=== PATIENT | female | born 1990 | race Caucasian/White ===

== ENCOUNTER 2019-08-04 08:55 | Inpatient (IN) | payer OTHER ==
[2019-08-04] MEDS ORDERED: Lidocaine 1% 50 ML MDV INJECT PRN (09:56)
[2019-08-04] MEDS ORDERED: Sodium Chloride 0.9% 10 ML Syringe FLUSH PRN (09:56)
[2019-08-04] MEDS ORDERED: Nalbuphine 10 MG/ML Syringe IVPUSH PRN (09:56)
[2019-08-04] MEDS ORDERED: Oxytocin/Lactated Ringers 10 UNIT/1,000 ML BAG IV SCH (10:00)
[2019-08-04] MEDS ORDERED: fentaNYL 100 MCG/2 ML SDV EPIDUR PRN (11:00)
[2019-08-04] MEDS ORDERED: Bupivacaine/fentaNYL/NS 100 ML Bag EPIDUR PRN (11:00)
[2019-08-04] MEDS ORDERED: ePHEDrine 50 MG/ML SDV IVPUSH PRN (11:00)
[2019-08-04] MEDS ORDERED: diphenhydrAMINE 50 MG/ML SDV IVPUSH PRN (11:00)
[2019-08-04] MEDS ORDERED: ceFAZolin 2 GM in Premix Bag 1 BAG IV ONE (11:00)
[2019-08-04] MEDS: Lactated Ringers 1,000 ML IV SCH ×2 (11:10→12:05)
--- NOTE | 2019-08-04 12:42 | PCM.PREANE ---
Preanesthetic Assessment - Procedure Proposed Procedure: Labor Epidural - Anesthesia/Transfusion/Family Hx Anesthesia History: Prior Anesthesia Without Reaction Family History of Anesthesia Reaction: No - Review of Systems General: No Symptoms Pulmonary: No Symptoms Cardiovascular: No Symptoms Gastrointestinal: No Symptoms Neurological: No Symptoms Other: Reports: None (History of drug abuse (heroine). None x 3 months. Incarcerated at this time. ) - Physical Assessment Vital Signs: Last Vital Signs Temp 36.4 C 08/04/19 09:48 Pulse 94 08/04/19 09:48 Resp 20 08/04/19 09:48 BP 117/78 08/04/19 09:48 Pulse Ox Height: 1.73 m Weight: 67.585 kg ASA Class: 3 Mental Status: Alert & Oriented x3 Dentition: Reports: Missing Tooth/Teeth (Front Missing, other front chipped. ) Thyro-Mental Finger Breadths: 3 Mouth Opening Finger Breadths: 3 ROM/Head Extension: Full Lungs: Clear to Auscultation, Normal Respiratory Effort Cardiovascular: Regular Rate, Regular Rhythm - Lab Values: Laboratory Last Values WBC 15.98 K/mm3 (3.98-10.04) H 08/04/19 10:37 RBC 4.88 M/mm3 (3.98-5.22) 08/04/19 10:37 Hgb 10.9 gm/dl (11.2-15.7) L 08/04/19 10:37 Hct 36.1 % (34.1-44.9) 08/04/19 10:37 MCV 74.0 fl (79.4-94.8) L 08/04/19 10:37 MCH 22.3 pg (25.6-32.2) L 08/04/19 10:37 MCHC 30.2 g/dl (32.2-35.5) L 08/04/19 10:37 RDW Std Deviation 53.0 fL (36.4-46.3) H 08/04/19 10:37 Plt Count 486 K/mm3 (182-369) H 08/04/19 10:37 MPV 10.7 fl (9.4-12.3) 08/04/19 10:37 Neut % (Auto) 72.0 % (34.0-71.1) H 08/04/19 10:37 Lymph % (Auto) 18.1 % (19.3-51.7) L 08/04/19 10:37 [place] % (Auto) 8.9 % (4.7-12.5) 08/04/19 10:37 Eos % (Auto) 0.4 (0.7-5.8) L 08/04/19 10:37 Baso % (Auto) 0.3 % (0.1-1.2) 08/04/19 10:37 Neut # (Auto) 11.50 K/mm3 (1.56-6.13) H 08/04/19 10:37 Lymph # (Auto) 2.89 K/mm3 (1.18-3.74) 08/04/19 10:37 [place] # (Auto) 1.43 K/mm3 (0.24-0.36) H 08/04/19 10:37 Eos # (Auto) 0.07 K/mm3 (0.04-0.36) 08/04/19 10:37 Baso # (Auto) 0.05 K/mm3 (0.01-0.08) 08/04/19 10:37 Manual Slide Review Abnormal smear 08/04/19 10:37 POC Glucose 74 mg/dL (70-105) 08/04/19 10:20 - Allergies Allergies/Adverse Reactions: Allergies Allergy/AdvReac Type Severity Reaction Status Date / Time penicillin G Allergy Hives Verified 08/03/19 21:15 - Acknowledgements Anesthesia Type Planned: Epidural Pt an Appropriate Candidate for the Planned Anesthesia: Yes Alternatives and Risks of Anesthesia Discussed w Pt/Guardian: Yes Pt/Guardian Understands and Agrees with Anesthesia Plan: Yes PreAnesthesia Questionnaire - HOME MEDS Home Medications: Home Meds Pnv No.95/Ferrous Fum/Folic AC [ Vitamin Tablet] 1 each PO DAILY 08/04/19 [History] - CURRENT (IN HOUSE) MEDS Current Meds: Current Medications Diphenhydramine HCl (Benadryl) 25 mg IVPUSH Q6H PRN PRN Reason: pruritis Ephedrine Sulfate (Ephedrine Sulfate) 5 mg IVPUSH ASDIRECTED PRN PRN Reason: Hypotension Fentanyl (Sublimaze) 100 mcg EPIDUR Q3H PRN PRN Reason: Pain Last Admin: 08/04/19 11:10 Dose: 100 mcg Documented by: Fentanyl/Bupivacaine HCl (Fentanyl/Bupivacaine/Ns 2 Mcg-0.125% 100 Ml) 100 ml EPIDUR ASDIRECTED PRN PRN Reason: Pain Last Admin: 08/04/19 11:11 Dose: 100 ml Documented by: Lactated Ringer's (Ringers, Lactated) 1,000 mls @ 100 mls/hr IV ASDIRECTED JORDYN Last Admin: 08/04/19 12:05 Dose: 100 mls/hr Documented by: Cefazolin Sodium/Dextrose 1 gm (/ Premix) 50 mls @ 100 mls/hr IV Q8H JORDYN Oxytocin/Lactated Ringer's (Pitocin In Lr 10 Units/1,000 Ml) 10 unit in 1,000 mls @ 500 mls/hr IV .CONTINUOUS JORDYN Lidocaine HCl (Xylocaine 1%) 50 ml INJECT ONETIME PRN PRN Reason: Breakthrough Pain Nalbuphine HCl (Nubain) 10 mg IVPUSH Q2H PRN PRN Reason: Pain Sodium Chloride (Saline Flush) 10 ml FLUSH ASDIRECTED PRN PRN Reason: Keep Vein Open Discontinued Medications Cefazolin Sodium/Dextrose 2 gm (/ Premix) 50 mls @ 100 mls/hr IV ONETIME ONE Stop: 08/04/19 11:29 Last Admin: 08/04/19 11:11 Dose: 100 mls/hr Documented by:
--- NOTE | 2019-08-04 14:43 | PCM.SN.2 ---
- Free Text/Narrative Note: Stage I - Patient presented in active labor. Progressed to complete with epidural anesthesia. Antibiotics for GBS. Stage II - of viable male, weight 3210, 8/9 APGARS at 1422. Head delivered in controlled manner over intact perineum. Body and shoulders atraumatically. Cord clamped and cut and baby to maternal abdomen. Cord blood collected Stage III - of intact placenta. Small first degree repaired with 3-0 vicryl. EBL 200
[2019-08-04] MEDS ORDERED: Benzocaine/Menthol 20%-0.5% Spray 56 GM Canister TOP PRN (15:07)
[2019-08-04] MEDS ORDERED: Witch Hazel Medicated Pads 40/Jar TOP PRN (15:07)
[2019-08-04] MEDS ORDERED: Docusate Sodium 100 MG Cap PO PRN (15:07)
[2019-08-04] MEDS ORDERED: ceFAZolin 1 GM in Premix Bag 1 BAG IV SCH (19:00)
[2019-08-05] MEDS ORDERED: Bupivacaine 0.25% 10 ML SDV ONE
[2019-08-05] MEDS: Ibuprofen 600 MG Tab PO PRN ×2 (00:50→08:26)
[2019-08-05] MEDS ORDERED: Acetaminophen 325 MG Tab PO PRN (04:57)
--- NOTE | 2019-08-05 07:51 | PCM48HPAN ---
Post Anesthesia Note - EVALUATION WITHIN 48HRS OF ANESTHETIC Vital Signs in Normal Range: Yes Patient Participated in Evaluation: Yes Respiratory Function Stable: Yes Airway Patent: Yes Cardiovascular Function Stable: Yes Hydration Status Stable: Yes Pain Control Satisfactory: Yes Nausea and Vomiting Control Satisfactory: Yes Mental Status Recovered: Yes Vital Signs: Last Vital Signs Temp 36.8 C 08/05/19 04:54 Pulse 80 08/05/19 04:54 Resp 14 08/05/19 04:54 BP 114/79 08/05/19 04:54 Pulse Ox 99 08/05/19 04:54
--- NOTE | 2019-08-05 08:05 | PCM.DCSUM1 ---
Discharge Summary - Hospital Course Diagnosis: Stroke: No - Discharge Data Discharge Date: 08/05/19 Discharge Disposition: Home, Self-Care 01 Condition: Good - Referral to Home Health Primary Care Physician: Yana Prescott MD - Patient Instructions Diet: Usual Diet as Tolerated Driving: May Drive Today Showering/Bathing: June Shower - Discharge Plan *PRESCRIPTION DRUG MONITORING PROGRAM REVIEWED*: No *COPY OF PRESCRIPTION DRUG MONITORING REPORT IN PATIENT KINGS: No Home Medications: Home Meds Pnv No.95/Ferrous Fum/Folic AC [ Vitamin Tablet] 1 each PO DAILY 08/04/19 [History] Referrals: Yana Prescott MD [Primary Care Provider] - (2-4 weeks) - Discharge Summary/Plan Comment DC Time >30 min.: No - General Info Date of Service: 08/05/19 Functional Status: Reports: Pain Controlled - Review of Systems General: Reports: No Symptoms HEENT: Reports: No Symptoms Pulmonary: Reports: No Symptoms Cardiovascular: Reports: No Symptoms Gastrointestinal: Reports: No Symptoms Genitourinary: Reports: No Symptoms Musculoskeletal: Reports: No Symptoms Skin: Reports: No Symptoms Neurological: Reports: No Symptoms Psychiatric: Reports: No Symptoms - Patient Data Vitals - Most Recent: Last Vital Signs Temp 36.8 C 08/05/19 04:54 Pulse 80 08/05/19 04:54 Resp 14 08/05/19 04:54 BP 114/79 08/05/19 04:54 Pulse Ox 99 08/05/19 04:54 Weight - Most Recent: 67.585 kg I&O - Last 24 hours: Intake & Output 08/04/19 08/05/19 08/05/19 22:59 06:59 14:59 Intake Total 2900 Balance 2900 Lab Results - Last 24 hrs: Laboratory Results - last 24 hr 08/04/19 08/04/19 08/04/19 Range/Units 10:20 10:37 10:37 WBC 15.98 H (3.98-10.04) K/mm3 RBC 4.88 (3.98-5.22) M/mm3 Hgb 10.9 L (11.2-15.7) gm/dl Hct 36.1 (34.1-44.9) % MCV 74.0 L (79.4-94.8) fl MCH 22.3 L (25.6-32.2) pg MCHC 30.2 L (32.2-35.5) g/dl RDW Std Deviation 53.0 H (36.4-46.3) fL Plt Count 486 H (182-369) K/mm3 MPV 10.7 (9.4-12.3) fl Neut % (Auto) 72.0 H (34.0-71.1) % Lymph % (Auto) 18.1 L (19.3-51.7) % [place] % (Auto) 8.9 (4.7-12.5) % Eos % (Auto) 0.4 L (0.7-5.8) Baso % (Auto) 0.3 (0.1-1.2) % Neut # (Auto) 11.50 H (1.56-6.13) K/mm3 Lymph # (Auto) 2.89 (1.18-3.74) K/mm3 [place] # (Auto) 1.43 H (0.24-0.36) K/mm3 Eos # (Auto) 0.07 (0.04-0.36) K/mm3 Baso # (Auto) 0.05 (0.01-0.08) K/mm3 Manual Slide Review Abnormal smear POC Glucose 74 (70-105) mg/dL RPR Non-reactive (NONREACTIVE) Med Orders - Current: Current Medications Acetaminophen (Tylenol) 650 mg PO Q6H PRN PRN Reason: Pain Last Admin: 08/05/19 05:27 Dose: 650 mg Documented by: Benzocaine/Menthol (Dermoplast Pain Relief [place]) 0 gm TOP ASDIRECTED PRN PRN Reason: Perineal Comfort Measure Last Admin: 08/04/19 17:43 Dose: 1 canister Documented by: Docusate Sodium (Colace) 100 mg PO BID PRN PRN Reason: Constipation Ibuprofen (Motrin) 600 mg PO Q6H PRN PRN Reason: Mild pain or fever Last Admin: 08/05/19 00:50 Dose: 600 mg Documented by: Guzman Alcala (Yennifer) 1 pad TOP ASDIRECTED PRN PRN Reason: Pain Last Admin: 08/04/19 17:43 Dose: 1 container Documented by: Discontinued Medications Diphenhydramine HCl (Benadryl) 25 mg IVPUSH Q6H PRN PRN Reason: pruritis Ephedrine Sulfate (Ephedrine Sulfate) 5 mg IVPUSH ASDIRECTED PRN PRN Reason: Hypotension Fentanyl (Sublimaze) 100 mcg EPIDUR Q3H PRN PRN Reason: Pain Last Admin: 08/04/19 11:10 Dose: 100 mcg Documented by: Fentanyl/Bupivacaine HCl (Fentanyl/Bupivacaine/Ns 2 Mcg-0.125% 100 Ml) 100 ml EPIDUR ASDIRECTED PRN PRN Reason: Pain Last Admin: 08/04/19 11:11 Dose: 100 ml Documented by: Lactated Ringer's (Ringers, Lactated) 1,000 mls @ 100 mls/hr IV ASDIRECTED JORDYN Last Admin: 08/04/19 12:05 Dose: 100 mls/hr Documented by: Cefazolin Sodium/Dextrose 2 gm (/ Premix) 50 mls @ 100 mls/hr IV ONETIME ONE Stop: 08/04/19 11:29 Last Admin: 08/04/19 11:11 Dose: 100 mls/hr Documented by: Cefazolin Sodium/Dextrose 1 gm (/ Premix) 50 mls @ 100 mls/hr IV Q8H JORDYN Oxytocin/Lactated Ringer's (Pitocin In Lr 10 Units/1,000 Ml) 10 unit in 1,000 mls @ 500 mls/hr IV .CONTINUOUS JORDYN Last Admin: 08/04/19 14:25 Dose: 500 mls/hr Documented by: Lidocaine HCl (Xylocaine 1%) 50 ml INJECT ONETIME PRN PRN Reason: Breakthrough Pain Nalbuphine HCl (Nubain) 10 mg IVPUSH Q2H PRN PRN Reason: Pain Sodium Chloride (Saline Flush) 10 ml FLUSH ASDIRECTED PRN PRN Reason: Keep Vein Open - Exam General: Reports: Alert, Oriented HEENT: Reports: Pupils Equal, Pupils Reactive, EOMI, Mucous Membr. Moist/[place] Neck: Reports: Supple Lungs: Reports: Clear to Auscultation, Normal Respiratory Effort Cardiovascular: Reports: Regular Rate, Regular Rhythm GI/Abdominal Exam: Normal Bowel Sounds, Soft, Non-Tender, No Organomegaly, No Distention, No Abnormal Bruit, No Mass, Pelvis Stable Rectal (Female) Exam: Normal Exam, Normal Rectal Tone Back Exam: Reports: Normal Inspection, Full Range of Motion Extremities: Normal Inspection, Normal Range of Motion, Non-Tender, No Pedal Edema, Normal Capillary Refill Neurological: Reports: No New Focal Deficit Psy/Mental Status: Reports: Alert, Normal Affect, Normal Mood
== END 2019-08-05 15:45 | DRG 807 ==
LOC: JD.OBCHECK 08:55 → JD.OB 08:56 → JD.OBCHECK 11:00 → JD.OB 11:00 → OBSVTOIN 14:22 → EEVIPCON 14:22 → JD.OB 14:23
PROVIDERS: ADMIT Obstetrics & Gynecology; ATTEND Obstetrics & Gynecology
PROC: 10E0XZZ Delivery of Products of Conception, External Approach (ICD-10-PCS; principal; 2019-08-04)
PROC: 0HQ9XZZ Repair Perineum Skin, External Approach (ICD-10-PCS; 2019-08-04)
PROC: 10907ZC Drainage of Amniotic Fluid, Therapeutic from Products of Conception, Via Natural or Artificial Opening (ICD-10-PCS; 2019-08-04)
PROC: 3E0R3BZ Introduction of Anesthetic Agent into Spinal Canal, Percutaneous Approach (ICD-10-PCS; 2019-08-04)
PROC: 00HU33Z Insertion of Infusion Device into Spinal Canal, Percutaneous Approach (ICD-10-PCS; 2019-08-04)
DX: O70.0 First degree perineal laceration during delivery (principal); Z37.0 Single live birth; Z3A.38 38 weeks gestation of pregnancy
CPT/HCPCS: 01967; 36415; 51702; 59025; 59409; 82962; 85025; 86592; A9270-GY; J0690; J2590; J3010; J3490; J7120